=== PATIENT | female | born 1955 | race Caucasian/White ===

== ENCOUNTER 2018-11-07 10:32 | Day surgery (SDC) | payer OTHER ==
[~2018-11-07 10:32] MED LIST: Propofol 200 MG/20 ML SDV ONE; Sodium Chloride 0.9% 10 ML Syringe FLUSH PRN
[2018-11-07] MEDS: Lactated Ringers 1,000 ML IV SCH (11:00)
[2018-11-07] MEDS ORDERED: Propofol 200 MG/20 ML SDV ONE (11:30)
--- NOTE | 2018-11-07 11:53 | PCM.HPR ---
H & P Addendum review - H & P Addendum Review Date of Original H & P: 11/04/18 Date Reviewed: 11/07/18 Patient was Examined: No Changes
--- NOTE | 2018-11-07 11:54 | PCM.OPNOTE ---
- General Post-Op/Procedure Note Date of Surgery/Procedure: 11/07/18 Operative Procedure(s): Colonoscopy Findings: Normal to Hep Fl Pre Op Diagnosis: Screening Post-Op Diagnosis: Same Anesthesia Technique: MAC Primary Surgeon: Jacques Ch Anesthesia Provider: Sarah Goldberg Complications: None Condition: Good Free Text/Narrative:: Recommend Tiburcio
--- NOTE | 2018-11-07 14:52 | OR ---
Date of Procedure: 11/07/2018 PREOPERATIVE DIAGNOSIS: Colon screening. POSTOPERATIVE DIAGNOSIS: Normal colonoscopy to the hepatic flexure. PROCEDURE: Colonoscopy to the hepatic flexure. ANESTHESIA: IV sedation. DESCRIPTION OF PROCEDURE: The patient was brought to the procedure room where she was placed on her left side and IV sedation administered. Digital rectal exam was performed which was normal. Colonoscope was inserted and advanced to the level of the hepatic flexure without any significant difficulty. The colon was fairly tortuous, and despite abdominal pressure and changing to the supine position, I could not get beyond the hepatic flexure. I believe I could see the liver shadow and light transilluminating in the right upper quadrant. The prep was good up to that point. Upon withdrawing the scope, the visible colon and rectum were all normal. No polyps, diverticulosis, or other abnormalities were noted. Air was removed and the scope withdrawn. The patient tolerated the procedure well and recommend that she have a barium enema for evaluation of the remaining colon. KIN MCKEON MD /[id number]
== END 2018-11-07 14:02 | disposition home or self-care (01) ==
LOC: LL.SDS 10:32
PROVIDERS: ATTEND Surgery
DX: R19.4 Change in bowel habit (principal); E55.9 Vitamin D deficiency, unspecified; F32.9 Major depressive disorder, single episode, unspecified; Z79.82 Long term (current) use of aspirin; Z79.890 Hormone replacement therapy; Z79.899 Other long term (current) drug therapy; Z88.2 Allergy status to sulfonamides; Z88.1 Allergy status to other antibiotic agents; Z98.890 Other specified postprocedural states
CPT/HCPCS: J2704; J7120

== ENCOUNTER 2021-09-22 07:09 | Emergency (ER) | payer OTHER ==
[2021-09-22] MEDS ORDERED: Ondansetron 4 MG Tab.DIS PO ONE ×2 (07:12→13:28)
[2021-09-22 07:59] LABS: CHLORIDE,CL 88 mmol/L (98-107)
[2021-09-22 08:01] LABS: ANION GAP 11.1 meq/L (7-15); SODIUM,NA 122 mmol/L (136-145)
[2021-09-22] MEDS ORDERED: Sodium Chloride 3% 500 ML IV SCH (08:15)
[2021-09-22] MEDS ORDERED: Sodium Chloride 0.9% 1,000 ML IV SCH (08:45)
[2021-09-22] MEDS ORDERED: cloNIDine 0.1 MG Tab PO ONE (11:08)
== END 2021-09-22 13:44 ==
LOC: LL.ED 07:09
DX: I10 Essential (primary) hypertension (principal); E87.1 Hypo-osmolality and hyponatremia; E78.00 Pure hypercholesterolemia, unspecified; Z88.1 Allergy status to other antibiotic agents; Z88.2 Allergy status to sulfonamides; Z79.899 Other long term (current) drug therapy; Z86.39 Personal history of other endocrine, nutritional and metabolic disease
CPT/HCPCS: 36415; 80053; 81003; 83735; 85025; 99284; A9270; J7030

== ENCOUNTER 2024-10-09 08:56 | Day surgery (SDC) | payer MEDICARE, OTHER ==
[~2024-10-09 08:56] MED LIST changes: +Midazolam 1 MG/ML 2 ML SDV ONE
[2024-10-09] MEDS: Lactated Ringers 1,000 ML IV SCH (09:26)
== END 2024-10-09 11:41 | disposition home or self-care (01) ==
LOC: LL.SDS 08:56
PROVIDERS: ATTEND Surgery
DX: Z12.11 Encounter for screening for malignant neoplasm of colon (principal); I10 Essential (primary) hypertension; E78.00 Pure hypercholesterolemia, unspecified; Z79.899 Other long term (current) drug therapy; Z88.2 Allergy status to sulfonamides
CPT/HCPCS: J2250; J2704; J7120